=== PATIENT | female | born 1960 | race Caucasian/White ===

== ENCOUNTER → 2017-01-25 | Outpatient (CLI) | payer MEDICARE ==
--- NOTE | 2017-01-25 14:17 | RAD ---
Examination: VQ scan History: History of chest pressure, dyspnea Comparison: Radiograph same day exam Findings: Ventilation scan was performed after inhalation of 10.7 mCi of xenon-133. Perfusion scan was performed after injection of 5.5 mg of technetium 99m MAA IV. Findings: There is radiotracer retention on the washout phase images of the ventilation. There is no suspicious mismatch perfusion defects identified in the bilateral lungs on the perfusion images. Impression: 1. Very low probability for pulmonary embolism. 2. Mild retention of radiotracer on the washout phase images likely airway disease.
--- NOTE | 2017-01-25 15:04 | RAD ---
EXAM: CHEST 2 VIEWS History: Shortness of breath COMPARISON: 04/08/2015 TECHNIQUE: PA and lateral chest radiographs FINDINGS: The cardiomediastinal silhouette is within normal limits. The lungs are clear bilaterally. The costophrenic sulci are clear and well demarcated bilaterally. IMPRESSION: No radiographic evidence of an acute cardiopulmonary abnormality.
== END | disposition home or self-care (01) ==
LOC: NM 12:16
PROVIDERS: ATTEND Internal Medicine Critical Care Medicine
DX: R07.89 Other chest pain (principal); R06.02 Shortness of breath
CPT/HCPCS: 71020; 78582; 96374; A9540; A9558

== ENCOUNTER → 2018-01-23 | Outpatient (CLI) | payer MEDICARE ==
--- NOTE | 2018-01-23 17:15 | RAD ---
Chest, 2 views, 01/23/2018: HISTORY: Cough, shortness of breath, chest pain Comparison is made to a study from 01/25/2017. The heart size is normal. No pulmonary infiltrate is seen. There is no evidence of pleural fluid. IMPRESSION: No acute cardiopulmonary abnormality is detected. Electronically signed by: Sergio Vanegas MD (01/23/2018 5:12 PM) [facility]
== END | disposition home or self-care (01) ==
LOC: RAD 11:39
PROVIDERS: ATTEND Internal Medicine Critical Care Medicine
DX: R07.89 Other chest pain (principal); R06.02 Shortness of breath; R05 Cough
CPT/HCPCS: 71046